=== PATIENT | female | born 1970 | race Caucasian/White ===

== ENCOUNTER → 2024-10-14 10:10 | Outpatient (REF) | payer OTHER, SELFPAY | LOC: HWRAD 10:10 | PROVIDERS: ATTENDING PHYSICIAN Obstetrics & Gynecology; FAMILY PHYSICIAN Family Medicine | DX: N95.0 Postmenopausal bleeding (principal) | CPT/HCPCS: 76830; 76856 ==

== ENCOUNTER → 2024-12-23 09:55 | Outpatient (REF) | payer OTHER, SELFPAY | LOC: HWRAD 09:55 | PROVIDERS: ATTENDING PHYSICIAN Obstetrics & Gynecology; FAMILY PHYSICIAN Family Medicine | DX: N83.201 Unspecified ovarian cyst, right side (principal) | CPT/HCPCS: 76830; 76856 ==

== ENCOUNTER → 2025-05-02 09:53 | Outpatient (REF) | payer OTHER, SELFPAY | LOC: HWRAD 09:53 | PROVIDERS: ATTENDING PHYSICIAN Obstetrics & Gynecology; FAMILY PHYSICIAN Family Medicine | DX: N83.202 Unspecified ovarian cyst, left side (principal) | CPT/HCPCS: 76830; 76856 ==